=== PATIENT | female | born 1950 | race Two or more races ===

== ENCOUNTER 2020-06-29 09:15 | Inpatient (IN) | payer OTHER ==
[~2020-06-29] VITALS: Ht 162.6 cm; Wt 62.6 kg
[2020-06-29] MEDS ORDERED: CALCIUM 500 +1 EAC2 PO (12:02)
[2020-06-29] MEDS ORDERED: MULTIPLE VITAM1 EAC2 PO (12:02)
[2020-06-29] MEDS ORDERED: PRAVASTATIN SOD40 MG PO (12:02)
[2020-06-29] MEDS ORDERED: STRESS B WITH1 EACH PO (12:03)
== END 2020-07-08 18:32 | disposition home or self-care (01) | DRG 331 ==
LOC: O/R 07-06 05:30 → SURH 07-06 06:30 → SURG 07-06 13:46
PROVIDERS: ADMIT Colon & Rectal Surgery; ATTEND Colon & Rectal Surgery
PROC: 07BC4ZX Excision of Pelvis Lymphatic, Percutaneous Endoscopic Approach, Diagnostic (ICD-10-PCS; 2020-07-06)
PROC: 0DTK4ZZ Resection of Ascending Colon, Percutaneous Endoscopic Approach (ICD-10-PCS; principal; 2020-07-06 06:30)
DX: D12.2 Benign neoplasm of ascending colon (principal); N18.2 Chronic kidney disease, stage 2 (mild)